=== PATIENT | male | born 1975 | race Hispanic/Latino ===

== ENCOUNTER 2019-01-25 16:16 | Inpatient (IN) | payer BC ==
[~2019-01-25] VITALS: Ht 167.6 cm; Wt 74.4 kg
--- OUTSIDE RECORDS SUMMARY | 2019-01-25 18:33 | XMS REPORT | Continuity of Care Document ---
Author Author [employer] Address Unknown Phone Unavailable Care Team Providers Care Vascular Ultrasound Technologist Name Role Phone [employer] Unavailable Unavailable Problems Problem Status Onset Date Classification Date Reported Comments Source Psoriasis arthropathica Active Problem 12/21/2018 Sarath Quevedo Psoriasis Active Problem 12/21/2018 Sarath Quevedo Medications Medication Details Route Status Patient Instructions Ordering Provider Order Date Source Folic Acid 1 tablet Orally Active 1 MG Orally Once a day Abdifatah 12/15/2018 Sarath Quevedo Indomethacin 1 capsule with food or milk Orally Active 50 MG Orally Twice a day Abdifatah 12/15/2018 Sarath Quevedo Methotrexate 8 tabs Orally Active 2.5mg Orally Once a week Abdifatah 12/15/2018 Sarath Quevedo Misc Medication 400 mL, Soln-IV, IV, Once, first dose 05/20/15 16:36:00 PRODUCTION PLANNING MANAGER, stop date 05/20/15 16:36:00 PRODUCTION PLANNING MANAGER Inactive [facility] 05/20/2015 [facility] propofol 40 mg=4 mL, Emulsion, IV, Once, first dose 05/20/15 16:33:00 PRODUCTION PLANNING MANAGER, stop date 05/20/15 16:33:00 PRODUCTION PLANNING MANAGER Inactive [facility] 05/20/2015 [facility] propofol 50 mg=5 mL, Emulsion, IV, Once, first dose 05/20/15 16:30:00 PRODUCTION PLANNING MANAGER, stop date 05/20/15 16:30:00 PRODUCTION PLANNING MANAGER Inactive [facility] 05/20/2015 [facility] propofol 40 mg=4 mL, Emulsion, IV, Once, first dose 05/20/15 16:29:00 PRODUCTION PLANNING MANAGER, stop date 05/20/15 16:29:00 PRODUCTION PLANNING MANAGER Inactive [facility] 05/20/2015 [facility] midazolam 2 mg=2 mL, Injection, IV, Once, first dose 05/20/15 16:27:00 PRODUCTION PLANNING MANAGER, stop date 05/20/15 16:27:00 PRODUCTION PLANNING MANAGER Inactive [facility] 05/20/2015 [facility] lidocaine 2 mL, Injection, IV, Once, first dose 05/20/15 16:26:00 PRODUCTION PLANNING MANAGER, stop date 05/20/15 16:26:00 PRODUCTION PLANNING MANAGER Inactive Rodriguez 05/20/2015 [facility] midazolam 2 mg=2 mL, Injection, IV, Once, first dose 05/20/15 16:26:00 PRODUCTION PLANNING MANAGER, stop date 05/20/15 16:26:00 PRODUCTION PLANNING MANAGER Inactive Rodriguez 05/20/2015 [facility] LR 500 mL 500 mL, IV, 75 mL/hr, start date 05/20/15 15:45:00 PRODUCTION PLANNING MANAGER Inactive Brynn 05/20/2015 [facility] Humira Pen inject 0.4ml Subcutaneous Active 40 MG/0.4ML Subcutaneous every 2 weeks Abdifatah Sarath Quevedo Tramadol HCl 1 tablet as needed Orally Active 50 MG Orally every 6 hrs Abdifatah Sarath Quevedo CoQ-10 1 capsule with a meal Orally Active 100 MG Orally Once a day Abdifatah Sarath Quevedo Allergies, Adverse Reactions, Alerts Substance Category Reaction Severity Reaction type Status Date Reported Comments Source otezla Adverse Reaction stopped due to insurance Adverse Reaction Active 12/15/2018 Sarath Quevedo methotrexate Adverse Reaction Info Not Available Adverse Reaction Active 12/15/2018 Sarath Quevedo No Known Medication Allergies drug allergy Allergy [facility] Immunizations No Data Provided for This Section Results No Data Provided for This Section Pathology Reports No Data Provided for This Section Diagnostic Reports No Data Provided for This Section Consultation Notes No Data Provided for This Section Discharge Summaries No Data Provided for This Section History and Physicals No Data Provided for This Section Vital Signs Vital Sign Value Date Comments Source Weight 160 12/15/2018 Sarath Quevedo Height 67 12/15/2018 Sarath Quevedo Temperature Oral (F) 97.7 F 12/15/2018 Sarath Quevedo Heart Rate 76 12/15/2018 Sarath Quevedo Diastolic (mm Hg) 70 12/15/2018 Sarath Quevedo Systolic (mm Hg) 120 12/15/2018 Sarath Quevedo Heart Rate 69 05/20/2015 [facility] Respitory Rate 16 05/20/2015 [facility] Systolic (mm Hg) 120/62 05/20/2015 [facility] Heart Rate 66 05/20/2015 [facility] Respitory Rate 14 05/20/2015 [facility] Systolic (mm Hg) 118/66 [facility] 65 05/20/2015 [facility] Systolic (mm Hg) 114/65 05/20/2015 [facility] Respitory Rate 14 05/20/2015 [facility] Temperature Oral (F) 36.4 Consuelo 05/20/2015 [facility] Weight 74.8 05/20/2015 [facility] Temperature Oral (F) 36.7 Consuelo 05/20/2015 [facility] Peripheral Pulse Rate 68 05/20/2015 [facility] Weight 27.55 05/17/2015 [facility] Encounters Location Location Details Encounter Type Encounter Number Reason For Visit Attending Provider ADM Date DC Date Status Source [facility] Outpatient [id number] Reginald Swain MD 05/20/2015 05/20/2015 Active [facility] Procedures No Data Provided for This Section Assessment and Plan No Data Provided for This Section Plan of Care No Data Provided for This Section Social History No Data Provided for This Section Family History No Data Provided for This Section Advance Directives No Data Provided for This Section Functional Status No Data Provided for This Section
--- OUTSIDE RECORDS SUMMARY | 2019-01-25 18:33 | XMS REPORT | CCD ---
Author Author Auto Generated Organization [facility] Address Unknown Phone Unavailable Care Team Providers Care Professor Of Business Name Role Phone Brynn HELLER, Reginald Velez CP Unavailable Allergies, Adverse Reactions, Alerts Substance Reaction Status No Known Medication Allergies Active Medications Medication Instructions Start Date End Date Status lidocaine 2 mL, Injection, IV, Once, first 05/20/2015 05/20/2015 Completed dose 05/20/15 16:26:00 BIOMEDICAL ENGINEERING PROFESSOR, stop date 05/20/15 16:26:00 BIOMEDICAL ENGINEERING PROFESSOR Misc Medication 400 mL, Soln-IV, IV, Once, first 05/20/2015 05/20/2015 Completed dose 05/20/15 16:36:00 BIOMEDICAL ENGINEERING PROFESSOR, stop date 05/20/15 16:36:00 BIOMEDICAL ENGINEERING PROFESSOR propofol 50 mg=5 mL, Emulsion, IV, Once, 05/20/2015 05/20/2015 Completed first dose 05/20/15 16:30:00 BIOMEDICAL ENGINEERING PROFESSOR, stop date 05/20/15 16:30:00 BIOMEDICAL ENGINEERING PROFESSOR propofol 40 mg=4 mL, Emulsion, IV, Once, 05/20/2015 05/20/2015 Completed first dose 05/20/15 16:33:00 BIOMEDICAL ENGINEERING PROFESSOR, stop date 05/20/15 16:33:00 BIOMEDICAL ENGINEERING PROFESSOR midazolam 2 mg=2 mL, Injection, IV, Once, 05/20/2015 05/20/2015 Completed first dose 05/20/15 16:26:00 BIOMEDICAL ENGINEERING PROFESSOR, stop date 05/20/15 16:26:00 BIOMEDICAL ENGINEERING PROFESSOR midazolam 2 mg=2 mL, Injection, IV, Once, 05/20/2015 05/20/2015 Completed first dose 05/20/15 16:27:00 BIOMEDICAL ENGINEERING PROFESSOR, stop date 05/20/15 16:27:00 BIOMEDICAL ENGINEERING PROFESSOR propofol 40 mg=4 mL, Emulsion, IV, Once, 05/20/2015 05/20/2015 Completed first dose 05/20/15 16:29:00 BIOMEDICAL ENGINEERING PROFESSOR, stop date 05/20/15 16:29:00 BIOMEDICAL ENGINEERING PROFESSOR LR 500 mL 500 mL, IV, 75 mL/hr, start date 05/20/2015 05/20/2015 Discontinued 05/20/15 15:45:00 BIOMEDICAL ENGINEERING PROFESSOR Vital Signs Most recent to oldest [Reference Range]: 1 2 3 Temperature Tympanic [36.6-38.1 DegC] 36.4 DegC *LOW* (05/20/2015 16:35:00) 36.7 DegC (05/20/2015 15:49:00) Temperature Tympanic Fahrenheit 97.52 (05/20/2015 16:35:00) Peripheral Pulse Rate [55-105 bpm] 68 bpm (05/20/2015 15:49:00) Heart Rate Monitored [60-100 bpm] 69 bpm (05/20/2015 16:50:00) 66 bpm (05/20/2015 16:45:00) 65 bpm (05/20/2015 16:40:00) Respiratory Rate [12-20] 16 (05/20/2015 16:50:00) 14 (05/20/2015 16:45:00) 14 (05/20/2015 16:40:00) SpO2 [90-100 %] 98 % (05/20/2015 16:50:00) 98 % (05/20/2015 16:45:00) 97 % (05/20/2015 16:40:00) Blood Pressure [110-120/65-85 mmHg] <content ID='[id number]'>120</content>/<content ID='[id number]'>62</content> mmHg (05/20/2015 16:50:00) <content ID='[id number]'>118</content>/<content ID='[id number]'>66</content> mmHg (05/20/2015 16:45:00) <content ID='[id number]'>114</content>/<content ID='[id number]'>65</content> mmHg (05/20/2015 16:40:00) Mean Arterial Pressure, Cuff 81.3 mmHg (05/20/2015 16:50:00) 83.3 mmHg (05/20/2015 16:45:00) 81.3 mmHg (05/20/2015 16:40:00) Most recent to oldest [Reference Range]: 1 2 3 Height/Length Estimated 165 cm (05/17/2015 15:33:00) Weight 74.8 kg (05/20/2015 15:49:00) Weight Estimated 75 kg (05/17/2015 15:33:00) Weight Dosing 74.8 kg (05/20/2015 15:49:00) Weight Pounds 165 lb (05/20/2015 15:49:00) Body Mass Index Estimated 27.55 kg/m2 (05/17/2015 15:33:00)
--- OUTSIDE RECORDS SUMMARY | 2019-01-25 18:33 | XMS REPORT ---
[facility] Address Unknown Phone Unavailable Care Team Providers Care Asian Art Curator Name Role Phone Unavailable Unavailable Problems This patient has no known problems. Allergies, Adverse Reactions, Alerts This patient has no known allergies or adverse reactions. Medications This patient has no known medications. Results Test Description Test Time Test Comments Text Results Atomic Results Result Comments CT CERVICAL WO CLINICAL INDICATION: M54.2 Cervicalgia MODALITY: SWYF CT (Iterative dose reduction techniques are utilized.)TECHNIQUE: Axial slices obtained through the cervical spine at appropriate intervals without contrast. Multiplanar reformatted images were obtained.Computed Tomography Dose Index: 17.0 mGy.IMPRESSION:1. 2.5 mm broad-based spondylotic posterior protrusion at the C6-C7 level.2. 2 mm broad-based posterior central protrusion at the C3-C4 level.3. 1 mm broad-based posterior protrusion at the C5-C6 level.4. 1 mm spondylotic posterior protrusion at the C4-C5 level, eccentric to the left.5. Multilevel bilateral cervical neural foraminal stenosis and facet arthrosis, detailed at specific levels below.FINDINGS:COMPARISON: NoneCervical spine alignment is normal. No fractures or destructive osseous lesions are detected. Moderate anterior spondylosis is present at the C6-C7 level. Mild anterior spondylosis is evident at remaining cervical levels.Findings at specific levels:C2-C3: Central canal and bilateral neural foramina are patent. Significant posterior intervertebral disc bulge or protrusion is not seen. Facet joints appear unremarkable..C3-C4: 2 mm broad-based posterior central protrusion is evident. Minimal posterior spondylosis is evident. Central canal is patent. The right neural foramen is patent. Mild left neural foraminal stenosis is evident. Moderate left and minimal right facet arthropathy is seen.C4-C5: 1 mm spondylotic posterior protrusion is evident, eccentric to the left, minimally effacing the left anterior aspect of thecal sac. Central canal remains patent. Moderate left neural foraminal stenosis is evident. The right neural foramen is patent. Moderate left facet arthropathy is seen. The right facet joint appears unremarkable.C5-C6: 1 mm broad-based posterior protrusion is evident. Central canal is patent. Bilateral neural foramina are patent. Minimal bilateral facet arthropathy is seen.C6-C7: 2.5 mm broad-based spondylotic posterior protrusion effaces the anterior aspect of thecal sac. Central canal remains patent. The right neural foramen is patent. Mild left neural foraminal stenosis is evident. Minimal bilateral facet arthropathy is see n.C7-T1: Significant disc bulge or protrusion is not seen. Central canal is patent. Bilateral neural foramina are patent. Mild to moderate bilateral facet arthropathy is seen.
--- OUTSIDE RECORDS SUMMARY | 2019-01-25 18:33 | XMS REPORT | Clinical Summary ---
Author Author [employer] [facility] [employer] Address Unknown Phone Unavailable Care Team Providers Care Asbestos Shingle Inspector Name Role Phone Wale Barlow MD PCP Allergies Not on File Medications Not on file Active Problems Not on file Social History Date Tobacco Use Types Packs/Day Years Used Never Assessed Sex Assigned at Date Recorded Not on file Industry Job Start Date Occupation Not on file Not on file Not on file Travel End Travel History Travel Start No recent travel history available. Last Filed Vital Signs Not on file Plan of Treatment Health Maintenance Due Date Last Done Comments INFLUENZA VACCINE 12/28/2018 Results Not on fileafter 01/24/2018 Insurance Type Payer Benefit Subscriber ID Effective Phone Address Plan / Dates Group PPO BCBS BCBS xxxxxxxxxxxx [id number] CHOICE resent PPO/ALIA QURESHI PPO Advance Directives For more information, please contact: [phone] Patient Health Services Coordinator Explanation Type Date Recorded Advance Directives, 09/22/2017 2:36 PM Living Will and Medical Power of Calendering Supervisor
--- OUTSIDE RECORDS SUMMARY | 2019-01-25 18:33 | XMS REPORT ---
Author Author Noé Gardiner Organization [employer] Address Unknown Phone Unavailable Care Team Providers Care Outdoor Landscape Architect Name Role Phone Noé Gardiner CP Unavailable Allergies, Adverse Reactions, Alerts Substance Reaction Event Type otezla stopped due to insurance Non Drug Allergy methotrexate Info Not Available Non Drug Allergy Problems Problem Type Condition Code Onset Dates Condition Status Problem Psoriasis arthropathica L40.50 Active Problem Psoriasis L40.9 Active Assessment Psoriasis arthropathica L40.50 Active Assessment Psoriasis L40.9 Active Medications Medication Code System Code Instructions Start Date End Date Status Dosage Humira Pen [facility] 14982218572 40 MG/0.4ML Subcutaneous every 2 weeks Active inject 0.4ml Tramadol HCl ND 58289312723 50 MG Orally every 6 hrs Inactive 1 tablet as needed CoQ-[address] [facility] 93084127561 100 MG Orally Once a day Active 1 capsule with a meal Folic Acid ND 58485186746 1 MG Orally Once a day December 15, 2018 Apr 14, 2019 Active 1 tablet Indomethacin ND 69588543479 50 MG Orally Twice a day December 15, 2018 Active 1 capsule with food or milk Methotrexate ND 40269547170 2.5mg Orally Once a week December 15, 2018 Apr 14, 2019 Active 8 tabs Vital Signs Date/Time: December 15, 2018 BMI 25.06 Index Weight 160 lbs Height 67 in Temperature 97.7 F Cardiac Monitoring Heart Rate 76 /min Blood Pressure Diastolic 70 mm Hg Blood Pressure Systolic 120 mm Hg Results No Known Results Summary Purpose [employer] Submission
[2019-01-25] MEDS ORDERED: CEFTRIAXONE SOD 1 GM/NS 50 ML 50 ML IV SCH (19:30)
[2019-01-25] MEDS: ACETAMINOPHEN 325 MG TAB PO PRN (19:53)
[2019-01-25 19:54] VITALS: BP 116/80
[2019-01-25 19:55] VITALS: BP 116/80
[2019-01-25] MEDS: SODIUM CHLORIDE 0.9% 1000ML 1,000 ML IV SCH (20:51)
[2019-01-25] MEDS: HEPARIN SOD (PORCINE) 5,000 UNIT/ML VIAL SC SCH (20:52)
[2019-01-25] MEDS: AZITHROMYCIN 500MG/NS 250 ML 250 ML IV SCH (20:52)
[2019-01-25 21:30] VITALS: BP 116/80
[2019-01-25] MEDS: BENZONATATE 100 MG CAP PO PRN (21:35)
[2019-01-25 21:49] LABS: BASOPHILS # (AUTO) 0.1 (0.0-0.1); BASOPHILS % 0.7 % (0.0-1.0); EOSINOPHILS # (AUTO) 0.2 (0.0-0.4); EOSINOPHILS % 2.5 % (0.0-6.0); LYMPHOCYTES # (AUTO) 1.3 (1.0-3.2); LYMPHOCYTES % 15.5 % (18.0-39.1); MEAN CORPUSCULAR HEMOGLOBIN 31.6 pg (28-32); MEAN CORPUSCULAR HGB CONC 34.1 g/dL (31-35); MEAN CORPUSCULAR VOLUME 92.6 fL (81-99); MONOCYTES # (AUTO) 0.9 (0.2-0.8); MONOCYTES % 10.5 % (4.4-11.3); NEUTROPHILS % 70.1 % (38.7-80.0); PLATELET COUNT 382 x10e3/uL (140-360); RED BLOOD COUNT 4.75 x10e6/uL (4.3-5.7); RED CELL DISTRIBUTION WIDTH 12.9 % (11.7-14.4)
[2019-01-25 22:08] LABS: ALANINE AMINOTRANSFERASE 15 IU/L (0-55); ALBUMIN 2.9 g/dL (3.5-5.0); ALBUMIN/GLOBULIN RATIO 0.7 (0.8-2.0); ALKALINE PHOSPHATASE 57 IU/L (40-150); ANION GAP 14.3 mmol/L (8-16); BLOOD UREA NITROGEN 12 mg/dL (7-26); BUN/CREATININE RATIO 15 (6-25); CALCIUM 9.2 mg/dL (8.4-10.2); CARBON DIOXIDE 24 mmol/L (22-29); CHLORIDE 102 mmol/L (98-107); CREATININE, SERUM 0.82 mg/dL (0.72-1.25); EST GLOMERULAR FILTRATION RATE > 60 ML/MIN (60-); GLUCOSE 103 mg/dL (74-118); POTASSIUM 3.3 mmol/L (3.5-5.1); SODIUM 137 mmol/L (136-145)
[2019-01-25] MEDS: MORPHINE SULFATE 2 MG/ML SYR 1ML IV PRN (22:25)
[2019-01-25] MEDS ORDERED: SODIUM CHLORIDE 0.9% 50ML 50 ML ONE (22:26)
[2019-01-25] MEDS ORDERED: IOPAMIDOL 370 MG/ML 200 ML INFUS..BTL INJ ONE (22:26)
[2019-01-25 22:43] LABS: BILIRUBIN,URINE NEGATIVE (NEGATIVE); CLARITY,URINE CLEAR (CLEAR); COLOR,URINE YELLOW (YELLOW); KETONES,URINE NEGATIVE (NEGATIVE); LEUKOCYTE ESTERASE ,URINE NEGATIVE (NEGATIVE); NITRITE,URINE NEGATIVE (NEGATIVE); PROTEIN,URINE DIPSTICK NEGATIVE (NEGATIVE); URINE UROBILINOGEN 0.2 mg/dL (0.2 - 1)
--- NOTE | 2019-01-25 23:00 | Diagnostic Imaging Report ---
EXAMINATION: CT scan of the chest with contrast. TECHNIQUE: Spiral CT images of the chest were performed from the lung apices to the level of the adrenal glands after the intravenous administration of 100 cc Isovue-370 Coronal and sagittal reformatted images were obtained. COMPARISON: None. CLINICAL HISTORY:Pneumonia, chest pain DISCUSSION: LINES/TUBES: None. LUNGS AND AIRWAYS: Dense consolidations with multiple air bronchograms and adjacent groundglass opacities involving the posterior, superior and inferior lingular segments of the left upper lobe and predominantly the superior segment of the left lower lobe. 4-5 mm nodule with adjacent ground glass opacity anteriorly within the left upper lobe (series 3 image 29). The right lung is clear. The trachea, mainstem bronchi, and central lobar and segmental bronchi are patent. PLEURA: No pneumothorax or pleural effusions. HEART AND MEDIASTINUM: Visualized portions of the thyroid gland appear normal. No ectasia or aneurysmal dilatation of the thoracic aorta. Pulmonary outflow tract is of normal caliber. No central pulmonary arterial filling defect. No pericardial effusion. LYMPH NODES: Multiple mildly enlarged left hilar and mediastinal lymph nodes, for example a subcarinal node measures 1 cm short axis. No axillary lymphadenopathy. ABDOMEN: Visualized portions of the liver, spleen, pancreas, adrenals, and upper poles of the kidneys are unremarkable. BONES AND SOFT TISSUES: No osseous destructive lesions. No focal soft tissue abnormalities. IMPRESSION: Multifocal pneumonia involving the left upper and lower lobes, with mild reactive left hilar and mediastinal lymphadenopathy.. Follow-up chest radiograph is suggested in 8 weeks to document resolution after appropriate treatment. 4 mm left upper lobe nodule likely represents an additional focus of infection. If the patient is at high risk of malignancy, a follow-up CT scan of the chest may be obtained in one year to assess for stability or resolution. Signed by: Dr. Papo Stahl M.D. on 01/25/2019 10:56 PM
[2019-01-25 23:01] LABS: BACTERIA,URINE FEW /HPF; EPITHELIAL CELLS,URINE FEW /LPF; RBC,URINE 0-5 /HPF (0-5); WBC,URINE (MAN) 0-5 /HPF (0-5)
[2019-01-25 23:59] VITALS: BP 103/67
[2019-01-26] VITALS (7 sets, daily range): BP systolic 102–120; BP diastolic 70–86
[2019-01-26] MEDS ORDERED: ALBUTEROL/IPRATROPIUM 3 ML NEB NEB SCH (01:00)
[2019-01-26] MEDS: SODIUM CHLORIDE 0.9% 1000ML 1,000 ML IV SCH ×3 (02:06→23:36)
[2019-01-26] MEDS: ACETAMINOPHEN 325 MG TAB PO PRN (02:06)
[2019-01-26] MEDS: BENZONATATE 100 MG CAP PO PRN ×2 (02:31→15:07)
[2019-01-26] MEDS: GUAIFENESIN/CODEINE 10 ML CUP PO PRN ×4 (03:39→20:00)
--- NOTE | 2019-01-26 03:45 | Diagnostic Imaging Report ---
EXAMINATION: PA and lateral views of the chest. COMPARISON: CT chest 01/25/2019 CLINICAL HISTORY: Shortness of breath, fever DISCUSSION: The lungs are well-inflated. Consolidations in the left upper and left lower lobes are similar to that seen on the director of scout work tomogram from CT performed 01/25/2019. The right lung remains clear. Heart size is normal. No overt pulmonary edema. No acute osseous abnormality. IMPRESSION: Multifocal pneumonia involving the left upper and lower lobes, seen to better advantage on comparison CT. No new consolidations. Signed by: Dr. Papo Stahl M.D. on 01/26/2019 3:41 AM
[2019-01-26 04:07] LABS: ABG HCO3 23 mmol/L (23-28); ABG PCO2 28 mmHg (41-51); ABG PH 7.52 (7.31-7.41); ABG PO2 120 mmHg (80-105)
[2019-01-26] MEDS: MORPHINE SULFATE 2 MG/ML SYR 1ML IV PRN ×2 (04:37→20:00)
--- NOTE | 2019-01-26 05:40 | History and Physical ---
HISTORY OF PRESENT ILLNESS: The patient is a 43-year-old gentleman with a history of chronic cough, chronic congestion, was seen in the clinic on the . The patient was diagnosed with acute bronchospasms and also with allergic rhinitis and also bronchitis. The patient was started on ciprofloxacin 500 mg for 10 days, prednisone 20 mg for 5 days and also some benzonatate Perles. The patient went pen[facility] through the medication and felt a little better and stop the medicine and then yesterday, the patient called was having symptoms of fever and congestion with a feeling of weakness. Chest x-ray was ordered in the office and showed right lobar pneumonia, upper and lower lobe, admitted to the hospital for failed outpatient treatment and also for possible sepsis. PAST MEDICAL HISTORY: History of cirrhotic arthritis, history of hyperlipidemia. FAMILY HISTORY: Positive for diabetes and also mother is alive without any problems. He has 2 brothers, 2 sisters, 1 healthy son, 1 daughter with Down syndrome. SOCIAL HISTORY: Nonsmoker. No EtOH. No IV drug abuse. ALLERGIES: NKDA. No recent hospitalization. MEDICATIONS: Methotrexate 2.5 mg 3 tablets weekly, indomethacin ER 75 mg, Atorvastatin 10 mg, tramadol 50 mg and also recent administration of Cipro and prednisone. REVIEW OF SYSTEMS: Negative for chest pain. No shortness of breath. Positive for some nausea. No vomiting. No diarrhea. No constipation. No rectal bleeding. Positive for fever. Positive for chills. Positive for weakness and fatigue. The patient also has yellow phlegm coming. Currently, the patient is also on Humira. PHYSICAL EXAMINATION: GENERAL: The patient is alert and oriented x3. HEENT: Normocephalic, atraumatic. Pupils are reactive to light and accommodation. CVS: S1 and S2 normal. Regular rate and rhythm. Right-sided rhonchi present throughout the lung. ABDOMEN: Nontender and nondistended. EXTREMITIES: No clubbing. No cyanosis and/or no edema. Positive for cirrhotic arthritis. Arthritic changes present. ASSESSMENT: 1. Chest x-ray shows failed outpatient treatment of lobar pneumonia. 2. History of psoriatic arthritis. 3. History of pain. 4. Immunocompromised status. PLAN: Plan would be to start the patient on Rocephin and Zithromax. Start him on IV fluids at 70 mL/hour. The patient will be given DVT prophylaxis with heparin 5000 units twice a day. GI prophylaxis with Pepcid will be started. CT of the chest has been ordered to rule out other etiologies, especially with being immunocompromised. His home medicines will be restarted except for methotrexate and Humira. The patient is on observation status. We will determine whether the patient will be inpatient depending on the CT and progression of the disease process. Further recommendation per clinical course. We will continue to monitor the patient. MD PATRICK Ash/MODL /[id number]
[2019-01-26 05:45] LABS: BASOPHILS # (AUTO) 0.1 (0.0-0.1); BASOPHILS % 0.7 % (0.0-1.0); EOSINOPHILS # (AUTO) 0.2 (0.0-0.4); HEMATOCRIT 38.4 % (38.2-49.6); LYMPHOCYTES # (AUTO) 1.3 (1.0-3.2); LYMPHOCYTES % 15.6 % (18.0-39.1); MEAN CORPUSCULAR HEMOGLOBIN 31.7 pg (28-32); MEAN CORPUSCULAR HGB CONC 33.9 g/dL (31-35); MEAN CORPUSCULAR VOLUME 93.7 fL (81-99); MONOCYTES # (AUTO) 0.9 (0.2-0.8); MONOCYTES % 10.5 % (4.4-11.3); NEUTROPHILS # (AUTO) 5.9 (2.1-6.9); NEUTROPHILS % 70.5 % (38.7-80.0); PLATELET COUNT 368 x10e3/uL (140-360)
[2019-01-26 06:06] LABS: ALANINE AMINOTRANSFERASE 13 IU/L (0-55); ALBUMIN 2.2 g/dL (3.5-5.0); ALBUMIN/GLOBULIN RATIO 0.6 (0.8-2.0); ALKALINE PHOSPHATASE 47 IU/L (40-150); ANION GAP 11.7 mmol/L (8-16); BLOOD UREA NITROGEN 10 mg/dL (7-26); BUN/CREATININE RATIO 13 (6-25); CALCIUM 8.3 mg/dL (8.4-10.2); CARBON DIOXIDE 26 mmol/L (22-29); CHLORIDE 103 mmol/L (98-107); CREATININE, SERUM 0.75 mg/dL (0.72-1.25); EST GLOMERULAR FILTRATION RATE > 60 ML/MIN (60-); GLUCOSE 107 mg/dL (74-118); POTASSIUM 3.7 mmol/L (3.5-5.1); SODIUM 137 mmol/L (136-145)
[2019-01-26] MEDS ORDERED: VANCOMYCIN 1GM/NS 250 ML 250 ML IV ONE (06:45)
[2019-01-26] MEDS: LEVALBUTEROL HCL SOLN NEBU 0.63 MG/3 ML NEB INH SCH ×3 (07:30→20:01)
[2019-01-26] MEDS: FAMOTIDINE 20 MG TAB PO SCH ×2 (08:36→15:57)
[2019-01-26] MEDS: PIPER-TAZ 3.375 GM 50 ML IV SCH ×3 (08:36→21:00)
[2019-01-26] MEDS: HEPARIN SOD (PORCINE) 5,000 UNIT/ML VIAL SC SCH ×2 (09:00→20:00)
--- NOTE | 2019-01-26 10:06 | Progress Note ---
DATE: SUBJECTIVE: The patient was admitted for multifocal pneumonia, right-sided. Last night, the patient spiked temperature up to 104, was tachypneic, O2 at [address] scan was done. Chest x-ray was done and the patient is still in IMCU. Currently, has temperature of 99. No chest pain. Positive for shortness of breath. No nausea, vomiting, diarrhea plus diaphoresis at times. OBJECTIVE: VITAL SIGNS: Temperature is 99.1, T-max is 104, pulse of 91, respirations of 20, blood pressure is 102/97, and pulse oximetry of 94% on 6 liters of oxygen. HEENT: Normocephalic, atraumatic. Pupils are reactive to light and accommodation. CVS: S1 and S2 normal. Regular rate and rhythm. ABDOMEN: Nontender, nondistended. LUNGS: Left lung with rhonchi and left lung with wheezing, inspiratory. Right lung clear. ABDOMEN: Nontender and nondistended. EXTREMITIES: No clubbing, no cyanosis, no edema. LABORATORY VALUES: White count is 8.40, hemoglobin 13.0, hematocrit of 38.5, platelet count is 368. Chemistry; sodium 137, potassium 3.7, BUN of 10, creatinine 0.75. Urine negative. Microbiology pending. Blood cultures, urine, and sputum is pending. IMAGING STUDIES: Chest x-ray shows no new consolidation, multifocal pneumonia involving left upper lobes and lower lobes seen together on comparison of CT. CT scan shows multifocal pneumonia and left upper lobe and lower lobes with mild reactive left hilar and mediastinal lymphadenopathy and 4 mm left upper lobe nodule likely representing an additional focus of infection. A followup CT scan is recommended. ASSESSMENT: Multifocal pneumonia, left-sided. PLAN: The patient has been changed to Zosyn 3.75 mg IV q.6 and also on Zithromax, a gram of vancomycin will be given. Sputum cultures have been awaiting. Blood cultures are awaiting. We will continue to monitor the patient. Further recommendation per clinical course. Consult with Dr. Sanchez has been done. MD PATRICK Ash/MODL /[id number]
[2019-01-26] MEDS: ACETAMINOPHEN 1000 MG/100 ML IV PRN ×3 (10:28→22:00)
--- NOTE | 2019-01-26 12:45 | NUR ---
Received patient from observation nurse, patient transferred in bed able to ambulate independently, denies pain, rating 0/10 scale. IVF infusing NS@120mls/hr. Patient on 4L High flow no s/s of distress. Oriented to room and use of call light instructed to use call light when needing assistance.
--- NOTE | 2019-01-26 16:24 | Consultation ---
DATE OF CONSULTATION: Pulmonary Consultation REASON FOR CONSULT: Pneumonia. HISTORY OF PRESENT ILLNESS: Mr. 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 He failed outpatient treatment. He was given p.o. antibiotics. His chest x-ray showing dense left-sided infiltrates. CT chest was done, which is showing evidence of left upper and lower lobe pneumonia. He is on Humira, methotrexate for psoriatic arthritis. He denies any travel outside the country. REVIEW OF SYSTEMS: GENERAL: Fever and chills. HEAD: Denies any head trauma. ENT: Denies any earache. CVS: Denies any chest pain. RESPIRATORY: Shortness of breath. GI: Denies any nausea or vomiting. The rest of the review of systems are negative except as in HPI. PAST MEDICAL HISTORY: Psoriatic arthritis. FAMILY AND SOCIAL HISTORY: He does not smoke. Does not drink. PHYSICAL EXAMINATION: VITAL SIGNS: Temperature 97.4, pulse of 83, blood pressure 120/82, respiratory rate of 18, O2 saturation 97%, and T-max of 101.1. HEENT: Head is atraumatic and normocephalic. NECK: Supple. CHEST: Bronchial breath sounds in the left upper lobe. Crackles on the left side. HEART: S1 and S2 audible. ABDOMEN: Soft and nontender. EXTREMITIES: No clubbing, cyanosis, or edema. NEUROLOGIC: He is awake and alert. LABORATORY DATA: White count of 8,000, hemoglobin 13.0, and platelets 368. Chemistries within normal limits. Chest CT films reviewed. ASSESSMENT/PLAN: A 43-year-old male with multifocal left-sided pneumonia, currently hemodynamically stable except fever. Continue the patient on IV hydration. Agree with IV Zosyn and azithromycin. I will add vancomycin scheduled as well. Move the patient to IMCU. Next 24 to 48 hours if the patient improves, I will continue the current treatment. If not, then may need bronchoscopy. I will also send sputum culture. MD DES Maya/ILNDSAY /[id number]
--- NOTE | 2019-01-26 19:30 | NUR ---
patient recieved awake, alert, lying quietly in bed. vss. no c/o pain noted. ivf continue to infuse without difficulty. pm assessment complete. patient instructed to call for assistance when needed.
[2019-01-26] MEDS: AZITHROMYCIN 500MG/NS 250 ML 250 ML IV SCH (19:44)
--- NOTE | 2019-01-26 20:00 | NUR ---
patient medicated with morphine 2mg ivp for c/o pain to chest with cough. robitussin with codeine 10cc po given for cough.
[2019-01-27] VITALS: BP 107/61
--- NOTE | 2019-01-27 | NUR ---
patient appears to be resting quietly. no c/o pain noted. oral temp 99.9 at this time. will continue to monitor.
[2019-01-27] MEDS: LEVALBUTEROL HCL SOLN NEBU 0.63 MG/3 ML NEB INH SCH ×4 (00:03→19:37)
[2019-01-27] MEDS: PIPER-TAZ 3.375 GM 50 ML IV SCH ×4 (02:08→21:49)
[2019-01-27 04:00] VITALS: BP 123/77
[2019-01-27] MEDS: GUAIFENESIN/CODEINE 10 ML CUP PO PRN ×4 (04:15→23:24)
[2019-01-27] MEDS: MORPHINE SULFATE 2 MG/ML SYR 1ML IV PRN ×2 (04:15→16:58)
--- NOTE | 2019-01-27 04:15 | NUR ---
patient medicated with morphine 2mg ivp for c/o head and chest pain due to coughing. robittusin with codeine 10cc po given for c/o cough at this time.
[2019-01-27] MEDS: ACETAMINOPHEN 1000 MG/100 ML IV PRN ×4 (04:38→17:40)
--- NOTE | 2019-01-27 04:38 | NUR ---
patient medicated with tylenol 1gm iv for temp 101.0 orally at this time.
--- NOTE | 2019-01-27 05:00 | NUR ---
patient refusing am labs this am. patient requesting a picc line so he doesn't have to be stuck. to be notified of this this am.
--- NOTE | 2019-01-27 06:25 | NUR ---
here to see patient. He spoke to patient re: picc line for lab draws per patients request. refused to order picc. patient ok with this decision and is ok with having lab stick him for am labs. lab notified of this at this time.
[2019-01-27 06:43] LABS: BASOPHILS # (AUTO) 0.1 (0.0-0.1); BASOPHILS % 0.6 % (0.0-1.0); EOSINOPHILS # (AUTO) 0.2 (0.0-0.4); EOSINOPHILS % 2.2 % (0.0-6.0); HEMATOCRIT 37.8 % (38.2-49.6); HEMOGLOBIN 12.5 g/dL (14.0-18.0); LYMPHOCYTES # (AUTO) 1.2 (1.0-3.2); LYMPHOCYTES % 14.6 % (18.0-39.1); MEAN CORPUSCULAR HEMOGLOBIN 31.4 pg (28-32); MEAN CORPUSCULAR HGB CONC 33.1 g/dL (31-35); MONOCYTES # (AUTO) 0.8 (0.2-0.8); MONOCYTES % 9.3 % (4.4-11.3); NEUTROPHILS # (AUTO) 6.1 (2.1-6.9); NEUTROPHILS % 72.9 % (38.7-80.0); PLATELET COUNT 352 x10e3/uL (140-360); RED BLOOD COUNT 3.98 x10e6/uL (4.3-5.7); RED CELL DISTRIBUTION WIDTH 13.1 % (11.7-14.4)
[2019-01-27 06:59] LABS: ANION GAP 12.6 mmol/L (8-16); BLOOD UREA NITROGEN 6 mg/dL (7-26); BUN/CREATININE RATIO 8 (6-25); CALCIUM 8.3 mg/dL (8.4-10.2); CARBON DIOXIDE 26 mmol/L (22-29); CHLORIDE 104 mmol/L (98-107); CREATININE, SERUM 0.73 mg/dL (0.72-1.25); EST GLOMERULAR FILTRATION RATE > 60 ML/MIN (60-); GLUCOSE 102 mg/dL (74-118); POTASSIUM 3.6 mmol/L (3.5-5.1); SODIUM 139 mmol/L (136-145)
[2019-01-27 07:26] VITALS: BP 115/76
[2019-01-27] MEDS: SODIUM CHLORIDE 0.9% 1000ML 1,000 ML IV SCH ×3 (08:53→21:49)
[2019-01-27] MEDS: FAMOTIDINE 20 MG TAB PO SCH ×2 (08:53→17:00)
[2019-01-27] MEDS: HEPARIN SOD (PORCINE) 5,000 UNIT/ML VIAL SC SCH ×2 (09:26→21:53)
[2019-01-27 11:32] VITALS: BP 134/71
--- NOTE | 2019-01-27 12:30 | NUR ---
called Dr. Travis for consult, spoke with Dr. Travis made aware of consult.
[2019-01-27] MEDS: VANCOMYCIN 1GM/NS 250 ML 250 ML IV SCH (12:59)
[2019-01-27 17:00] VITALS: BP 156/81
[2019-01-27] MEDS ORDERED: KETOROLAC TROMETHAMINE 30 MG/ML VIAL IM PRN (18:30)
[2019-01-27] MEDS: AZITHROMYCIN 500MG/NS 250 ML 250 ML IV SCH (19:46)
[2019-01-27] MEDS: KETOROLAC TROMETHAMINE 30 MG/ML VIAL IV PRN (19:46)
[2019-01-27 20:00] VITALS: BP 151/81
[2019-01-28] VITALS (8 sets, daily range): BP systolic 109–150; BP diastolic 56–82
[2019-01-28] MEDS: LEVALBUTEROL HCL SOLN NEBU 0.63 MG/3 ML NEB INH SCH ×4 (00:12→19:15)
[2019-01-28] MEDS: ACETAMINOPHEN 325 MG TAB PO PRN ×4 (00:22→17:44)
[2019-01-28] MEDS: VANCOMYCIN 1GM/NS 250 ML 250 ML IV SCH ×2 (00:23→12:45)
[2019-01-28] MEDS: PIPER-TAZ 3.375 GM 50 ML IV SCH ×4 (03:53→21:35)
[2019-01-28] MEDS: MORPHINE SULFATE 2 MG/ML SYR 1ML IV PRN (04:36)
[2019-01-28] MEDS: FAMOTIDINE 20 MG TAB PO SCH ×2 (08:49→16:30)
[2019-01-28] MEDS: SODIUM CHLORIDE 0.9% 1000ML 1,000 ML IV SCH ×3 (08:57→19:45)
[2019-01-28] MEDS: KETOROLAC TROMETHAMINE 30 MG/ML VIAL IV PRN (09:15)
[2019-01-28] MEDS: HEPARIN SOD (PORCINE) 5,000 UNIT/ML VIAL SC SCH ×2 (09:16→21:35)
[2019-01-28] MEDS: GUAIFENESIN/CODEINE 10 ML CUP PO PRN ×2 (13:16→17:44)
--- NOTE | 2019-01-28 17:25 | NUR ---
Paged Dr. Travis made aware AFB culture (BLD) Blood to taken on Tuesday is a sent out and it is required to done during weekday. Tuesday is Labor day. Received orders to do it Tuesday, and to do HIV 1 Western Blot
--- NOTE | 2019-01-28 18:09 | Consultation ---
DATE OF CONSULTATION: REASON FOR CONSULTATION: Fever, chills, pneumonia. HISTORY OF PRESENT ILLNESS: This patient is a very pleasant 43-year-old male, who has been sick for a couple of months or so. He was diagnosed with psoriasis. The patient also had psoriasis arthritis. He has been seen by Dr. Quevedo. He was started on Humira. He was getting these shots every two weeks. He has been on fever for about a month now and he was diagnosed with pneumonia. He was given ciprofloxacin 5 mg for 10 days, prednisone 20 mg for 5 days without any improvement. The fever persist. He got sicker. He said he has been coughing up some greenish sputum through the whole time. Finally, he came to the hospital where he was admitted. The patient is currently alert, oriented, comfortable. He is telling me he has history of psoriasis. He also has history of hyperlipidemia. He does have cats and dogs in the house. 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 PAST MEDICAL HISTORY: Psoriasis, arthritis, hyperlipidemia. PAST SURGICAL HISTORY: Denies. ALLERGIES: NKDA. SOCIAL HISTORY: He denies smoking, drug abuse, or alcohol abuse. He is . He has two cats, two new kittens and a dog. Does not live in a farm. MEDICATIONS: Methotrexate 7.5 weekly, indomethacin 75 daily, atorvastatin, tramadol, and then Humira injection every two weeks for the last couple of months. REVIEW OF SYSTEMS: GENERAL: He is just not feeling well, having fever as mentioned above, and cough. Mainly the fever is a problem. Other than that his review of systems is. HEENT: Negative. PULMONARY: As above. : Negative. GI: Negative. SKIN: There is no rash. The patient was in the emergency room and chest x-ray showed multilobar pneumonia. He was on Rocephin, azithromycin, however, his fever continue. The patient has been seen by Pulmonary. Infectious Disease did not see the patient. LABORATORY DATA: Reviewed. His white count 8.56, hemoglobin 15, hematocrit 44. His sodium 137, potassium 3.7, creatinine 0.75, albumin 2.9. Blood cultures, sputum cultures are -[address], which was done showed multifocal pneumonia involving left upper lobe and lower lobes with mild reactive left hilar mediastinal lymphadenopathy. PHYSICAL EXAMINATION: GENERAL: He is currently alert, oriented, does not seem to be in acute distress. VITALS SIGNS: Stable with febrile, low temperature 103. HEENT: Not icteric. NECK: Supple. CHEST: Few crackles bilateral. COR: S1, S2. No murmurs. ABDOMEN: Soft. Bowel sounds present. EXTREMITIES: No edema. IMPRESSION AND PLAN: Pneumonia for 4 weeks, immunocompromised patient, history of kitten exposure. Differential diagnosis is wide because he is immunocompromised patient. I think we need to rule out acute fever with this exposure to the kitten, rule out histoplasmosis, rule out atypical infection, mycoplasma, Legionella, chlamydia. I would also obtain HIV. May need bronchoscopy to check for AFB and fungal. Further recommendations to follow. We will discuss with Pulmonary. MD RAPHAEL Ambriz/LINDSAY /[id number]
--- NOTE | 2019-01-28 19:00 | NUR ---
Patient visited in room during nursing rounds. Patient alert and oriented x4. No distress or discomfort noted. On 3L Humidified O2. Ambulatory in room prn. at bedside. Pt educated and aware of plan of care. Pt on scheduled IV antibiotics. V/S stable at this time. Call portillo within reach. Will monitor closely.
[2019-01-28] MEDS: AZITHROMYCIN 500MG/NS 250 ML 250 ML IV SCH (19:45)
[2019-01-28 21:06] LABS: HIV 1&2 AB SCREEN NON-REACTIVE (NONREACTIVE)
[2019-01-29] VITALS (8 sets, daily range): BP systolic 116–143; BP diastolic 63–83
[2019-01-29] MEDS: ACETAMINOPHEN 325 MG TAB PO PRN ×4 (00:13→22:59)
[2019-01-29] MEDS: GUAIFENESIN/CODEINE 10 ML CUP PO PRN ×4 (00:15→21:19)
[2019-01-29] MEDS: VANCOMYCIN 1GM/NS 250 ML 250 ML IV SCH (00:18)
[2019-01-29] MEDS: LEVALBUTEROL HCL SOLN NEBU 0.63 MG/3 ML NEB INH SCH ×4 (00:20→19:00)
[2019-01-29] MEDS: MORPHINE SULFATE 2 MG/ML SYR 1ML IV PRN (01:44)
[2019-01-29] MEDS: PIPER-TAZ 3.375 GM 50 ML IV SCH ×4 (03:00→21:21)
[2019-01-29] MEDS: FAMOTIDINE 20 MG TAB PO SCH ×2 (06:28→16:09)
[2019-01-29 06:29] LABS: BASOPHILS % 0.6 % (0.0-1.0); EOSINOPHILS # (AUTO) 0.2 (0.0-0.4); EOSINOPHILS % 3.5 % (0.0-6.0); HEMOGLOBIN 12.6 g/dL (14.0-18.0); LYMPHOCYTES # (AUTO) 1.6 (1.0-3.2); LYMPHOCYTES % 23.1 % (18.0-39.1); MEAN CORPUSCULAR HEMOGLOBIN 31.4 pg (28-32); MEAN CORPUSCULAR HGB CONC 33.2 g/dL (31-35); MEAN CORPUSCULAR VOLUME 94.8 fL (81-99); MONOCYTES # (AUTO) 0.7 (0.2-0.8); MONOCYTES % 10.2 % (4.4-11.3); NEUTROPHILS # (AUTO) 4.3 (2.1-6.9); NEUTROPHILS % 62.2 % (38.7-80.0); PLATELET COUNT 402 x10e3/uL (140-360); RED BLOOD COUNT 4.01 x10e6/uL (4.3-5.7); RED CELL DISTRIBUTION WIDTH 13.2 % (11.7-14.4)
[2019-01-29 06:52] LABS: ALANINE AMINOTRANSFERASE 49 IU/L (0-55); ALBUMIN 2.2 g/dL (3.5-5.0); ALBUMIN/GLOBULIN RATIO 0.6 (0.8-2.0); ALKALINE PHOSPHATASE 52 IU/L (40-150); BLOOD UREA NITROGEN 5 mg/dL (7-26); BUN/CREATININE RATIO 7 (6-25); CALCIUM 8.9 mg/dL (8.4-10.2); CARBON DIOXIDE 27 mmol/L (22-29); CHLORIDE 105 mmol/L (98-107); CREATININE, SERUM 0.71 mg/dL (0.72-1.25); EST GLOMERULAR FILTRATION RATE > 60 ML/MIN (60-); GLUCOSE 98 mg/dL (74-118); SODIUM 139 mmol/L (136-145)
[2019-01-29] MEDS: HEPARIN SOD (PORCINE) 5,000 UNIT/ML VIAL SC SCH ×2 (08:31→21:21)
[2019-01-29] MEDS: SODIUM CHLORIDE 0.9% 1000ML 1,000 ML IV SCH ×2 (08:33→16:09)
[2019-01-29] MEDS: VANCOMYCIN HCL 2 GM in SODIUM CHLORIDE 0.9% 500ML 500 ML IV SCH ×2 (09:07→21:21)
--- NOTE | 2019-01-29 13:06 | Diagnostic Imaging Report ---
2 frontal views of the chest. HISTORY: Pneumonia, cough COMPARISON: Chest radiograph January 26, 2019. CT of the chest January 25, 2019. DISCUSSION: Portable technique, limits sensitivity of the exam. Overlying artifacts. Tubes/Lines: None Lungs and pleura: Slightly more confluent patchy interstitial and airspace opacities involving the left upper and lower lobes. Heart and mediastinum: The cardiomediastinal silhouette appear(s) unchanged. Bones and soft tissues: Appear unchanged. IMPRESSION: Findings compatible with evolving multifocal pneumonia. Recommend short term follow up routine PA and lateral chest radiographs, in 6 to 8 weeks, to evaluate for resolution. Signed by: Dr. Mick Hansen D.O., M.M.M. on 01/29/2019 1:03 PM
[2019-01-29] MEDS: KETOROLAC TROMETHAMINE 30 MG/ML VIAL IV PRN (16:54)
[2019-01-29] MEDS: AZITHROMYCIN 500MG/NS 250 ML 250 ML IV SCH (20:31)
[2019-01-30] VITALS (7 sets, daily range): BP systolic 108–145; BP diastolic 65–74
[2019-01-30] MEDS: KETOROLAC TROMETHAMINE 30 MG/ML VIAL IV PRN (00:02)
[2019-01-30] MEDS: SODIUM CHLORIDE 0.9% 1000ML 1,000 ML IV SCH ×3 (01:00→17:04)
[2019-01-30] MEDS: LEVALBUTEROL HCL SOLN NEBU 0.63 MG/3 ML NEB INH SCH ×4 (01:00→19:00)
[2019-01-30] MEDS: PIPER-TAZ 3.375 GM 50 ML IV SCH ×4 (04:00→21:33)
[2019-01-30 05:02] LABS: BASOPHILS # (AUTO) 0.1 (0.0-0.1); BASOPHILS % 0.7 % (0.0-1.0); EOSINOPHILS # (AUTO) 0.3 (0.0-0.4); EOSINOPHILS % 4.6 % (0.0-6.0); HEMATOCRIT 38.3 % (38.2-49.6); HEMOGLOBIN 12.4 g/dL (14.0-18.0); LYMPHOCYTES # (AUTO) 1.5 (1.0-3.2); LYMPHOCYTES % 20.4 % (18.0-39.1); MEAN CORPUSCULAR HEMOGLOBIN 30.8 pg (28-32); MEAN CORPUSCULAR HGB CONC 32.4 g/dL (31-35); MONOCYTES # (AUTO) 0.7 (0.2-0.8); MONOCYTES % 9.8 % (4.4-11.3); NEUTROPHILS # (AUTO) 4.7 (2.1-6.9); NEUTROPHILS % 64.1 % (38.7-80.0); PLATELET COUNT 461 x10e3/uL (140-360); RED BLOOD COUNT 4.03 x10e6/uL (4.3-5.7); RED CELL DISTRIBUTION WIDTH 13.2 % (11.7-14.4)
[2019-01-30 05:24] LABS: ALANINE AMINOTRANSFERASE 106 IU/L (0-55); ALBUMIN 2.1 g/dL (3.5-5.0); ALBUMIN/GLOBULIN RATIO 0.5 (0.8-2.0); ALKALINE PHOSPHATASE 56 IU/L (40-150); BLOOD UREA NITROGEN 6 mg/dL (7-26); BUN/CREATININE RATIO 8 (6-25); CARBON DIOXIDE 26 mmol/L (22-29); CHLORIDE 104 mmol/L (98-107); CREATININE, SERUM 0.77 mg/dL (0.72-1.25); EST GLOMERULAR FILTRATION RATE > 60 ML/MIN (60-); GLUCOSE 97 mg/dL (74-118); SODIUM 139 mmol/L (136-145)
--- NOTE | 2019-01-30 07:12 | NUR ---
Report given to oncoming nurse,walking round done.
[2019-01-30] MEDS: FAMOTIDINE 20 MG TAB PO SCH ×2 (07:22→15:45)
[2019-01-30] MEDS ORDERED: LIDOCAINE HCL 4% 50 ML BTL ONE (08:24)
[2019-01-30] MEDS ORDERED: ACETYLCYSTEINE 200 MG/ML 4ML VIAL ONE (08:24)
[2019-01-30] MEDS ORDERED: LIDOCAINE HCL 2% 30 ML TUBE ONE (08:24)
[2019-01-30] MEDS: VANCOMYCIN HCL 2 GM in SODIUM CHLORIDE 0.9% 500ML 500 ML IV SCH ×2 (08:25→21:33)
[2019-01-30] MEDS ORDERED: OXYMETAZOLINE HCL 0.05% NAS 1 SPRAY BTL ONE (08:25)
[2019-01-30] MEDS: HEPARIN SOD (PORCINE) 5,000 UNIT/ML VIAL SC SCH ×2 (09:00→21:13)
--- NOTE | 2019-01-30 09:46 | Progress Note ---
DATE: SUBJECTIVE: This is a 43-year-old with immunocompromise comes in with fever of four weeks with pneumonia on the left side. The patient is currently still spiking a fever of 101.4, feeling bad. No chest pains. Positive for some shortness of breath. No nausea, vomiting, or diarrhea. Positive for generalized body aches: The patient currently is having a temperature of 99.0. OBJECTIVE: GENERAL: The patient is alert and oriented x3. VITAL SIGNS: Temperature is 98.9, T-max 101.0 at 11:47 last night. The patient's respirations are 20 and has been varying from 20 to 27, pulse oximetry of 100%. He is on 2 L of oxygen. HEENT: Normocephalic, atraumatic. Pupils are reactive to light and accommodation. CVS: S1, S2 normal. Regular rate and rhythm. LUNGS: Positive for left-sided rhonchi and decreased air entry. ABDOMEN: Nontender and nondistended. EXTREMITIES: No clubbing. No cyanosis. No edema. MEDICATIONS: The patient is on Zosyn, vancomycin and azithromycin. DVT prophylaxis and GI prophylaxis instituted, pain medication on morphine. LABORATORY VALUES: Today's white count was 7.25, hemoglobin of 12.5, hematocrit of 38.1, platelet count is 461. MICROBIOLOGY: Gram stain sputum shows usual respiratory kieran. The patient's blood cultures, no growth. AFB culture is pending. IMAGING STUDIES: Chest x-ray from yesterday shows finding compatible with evolving multifocal pneumonia and no progression. ASSESSMENT: A 43-year-old male with sepsis. 1. Present on arrival. 2. Multifocal pneumonia. 3. Fever. 4. History of immunocompromised status. 5. Pneumonia. PLAN: 1. We will continue to have the patient on antibiotics at this time. 2. A bronchoscopy will be done today secondary to nonresolving of fever and also pneumonia. 3. Continue on supplemental oxygen. 4. GI prophylaxis. 5. DVT prophylaxis. Further recommendation per clinical course. We will continue to monitor the patient. MD PATRICK Ash/BROOKLYNL /[id number]
--- NOTE | 2019-01-30 09:53 | NUR ---
pt off unit for procedure
[2019-01-30 11:47] LABS: BODY FLUID APPEARANCE CLOUDY; BODY FLUID COLOR STRAW; BODY FLUID TYPE SEE COMMENTS
[2019-01-30 11:48] LABS: RBC,BODY FLUID 1565 cells/uL; WBC,BODY FLUID 177 cells/uL
[2019-01-30 11:59] LABS: EOSINOPHILS,BODY FLUID 1 %; LYMPHOCYTES,BODY FLUID 53 %; MONO/MACROPHG,BODY FLUID 7 %; NEUTROPHILS,BODY FLUID 28 %; OTHER CELLS,BODY FLUID 11 %
[2019-01-30] MEDS: GUAIFENESIN/CODEINE 10 ML CUP PO PRN ×2 (13:38→19:53)
[2019-01-30] MEDS: FLUCONAZOLE 400MG/200ML BAG 200 ML IV SCH (13:38)
--- NOTE | 2019-01-30 17:04 | Operative Report ---
DATE OF PROCEDURE: SURGEON: Casimiro Diaz MD PREPROCEDURE DIAGNOSIS: Multifocal pneumonia. POSTPROCEDURE DIAGNOSES: Normal endobronchial airway, mild narrowing of the lingular segment. TAX MAP TECHNICIAN: None. ANESTHESIA: General. PROCEDURE DETAIL: Bronchoscope was advanced through the LMA. Pavithra was identified. Right lung was entered. Right upper lobe, lower lobe and middle lobe were examined. No endobronchial lesion was seen. Thin secretions. Left upper lobe appeared normal. Lingula was slightly narrowed, but no endobronchial lesion was seen. Left lower lobe appeared normal looking thin secretions. No mucopurulence was seen. BAL was sent from left upper lobe and lower lobe. Since there was narrowing of the left lingula, I did a mucosal biopsy of the lingula. COMPLICATIONS: None. The patient tolerated the procedure well. MD DES Maya/BROOKLYNL /[id number]
[2019-01-30] MEDS ORDERED: LIDOCAINE HCL 2% LOCAL INJ 5 ML SDV VIAL INJ ONE (17:41)
[2019-01-30] MEDS ORDERED: ONDANSETRON HCL INJ 2MG/ML 2ML 2 MG/ML VIAL ONE (17:41)
[2019-01-30] MEDS ORDERED: DEXAMETHASONE SOD PHOS INJ 4 MG/ML VIAL ONE (17:41)
[2019-01-30] MEDS ORDERED: PROPOFOL IV EMULSION 10 MG/ML 20 ML VIAL ONE (17:41)
[2019-01-30] MEDS ORDERED: SEVOFLURANE INHAL SOLN 250 ML PEN BTL ONE (17:41)
[2019-01-30] MEDS ORDERED: MIDAZOLAM HCL 2 MG/2 ML VIAL ONE (18:26)
[2019-01-30] MEDS ORDERED: FENTANYL CITRATE/PF 100MCG/2 ML INJ ONE (18:26)
[2019-01-30] MEDS: AZITHROMYCIN 500MG/NS 250 ML 250 ML IV SCH (19:47)
--- NOTE | 2019-01-30 23:49 | NUR ---
Started new IV on right wrist 20G at this time. Will continue to monitor.
[2019-01-31] MEDS: SODIUM CHLORIDE 0.9% 1000ML 1,000 ML IV SCH ×3 (01:24→18:04)
[2019-01-31 04:11] VITALS: BP 106/64
[2019-01-31] MEDS: PIPER-TAZ 3.375 GM 50 ML IV SCH ×4 (04:17→20:43)
[2019-01-31 05:02] LABS: BASOPHILS % 0.4 % (0.0-1.0); EOSINOPHILS % 0.1 % (0.0-6.0); HEMATOCRIT 35.7 % (38.2-49.6); HEMOGLOBIN 11.8 g/dL (14.0-18.0); LYMPHOCYTES % 13.4 % (18.0-39.1); MEAN CORPUSCULAR HEMOGLOBIN 31.1 pg (28-32); MEAN CORPUSCULAR HGB CONC 33.1 g/dL (31-35); MEAN CORPUSCULAR VOLUME 93.9 fL (81-99); MONOCYTES # (AUTO) 0.5 (0.2-0.8); MONOCYTES % 6.7 % (4.4-11.3); NEUTROPHILS # (AUTO) 5.6 (2.1-6.9); PLATELET COUNT 516 x10e3/uL (140-360); RED CELL DISTRIBUTION WIDTH 13.1 % (11.7-14.4)
[2019-01-31 05:34] LABS: ALANINE AMINOTRANSFERASE 114 IU/L (0-55); ALBUMIN 2.2 g/dL (3.5-5.0); ALBUMIN/GLOBULIN RATIO 0.6 (0.8-2.0); ALKALINE PHOSPHATASE 55 IU/L (40-150); ANION GAP 14.2 mmol/L (8-16); BLOOD UREA NITROGEN 9 mg/dL (7-26); BUN/CREATININE RATIO 12 (6-25); CALCIUM 9.1 mg/dL (8.4-10.2); CARBON DIOXIDE 23 mmol/L (22-29); CHLORIDE 104 mmol/L (98-107); CREATININE, SERUM 0.77 mg/dL (0.72-1.25); EST GLOMERULAR FILTRATION RATE > 60 ML/MIN (60-); GLUCOSE 118 mg/dL (74-118); POTASSIUM 4.2 mmol/L (3.5-5.1); SODIUM 137 mmol/L (136-145)
--- NOTE | 2019-01-31 07:00 | NUR ---
Pt received resting in bed. Alert and oriented x4, on room air. Oriented to staff and surroundings. Encouraged to press call portillo if help needed. Pt verbalized understanding of teaching. Call portillo within reach. Will monitor
--- NOTE | 2019-01-31 07:02 | Progress Note ---
DATE: SUBJECTIVE: The patient is a 43-year-old male with immunocompromised status secondary to disease modifying drugs. The patient is currently afebrile, has been feeling better since yesterday. No diarrhea has been noted. No chest pain. No shortness of breath. Fever has dissipated. The patient is feeling better today. Bronchoscopy was done yesterday and findings noted. OBJECTIVE: VITAL SIGNS: Temperature is 97.6, T-max is 99.0 at 2000 on 01/30/2019. The patient's pulse 84, respirations of 18, blood pressure is 106/64, pulse oximetry of 98% on room air. HEENT: Normocephalic, atraumatic. Pupils are reactive to light and accommodation. CVS: S1 and S2 are normal. Regular rate and rhythm. ABDOMEN: Nontender, nondistended. EXTREMITIES: No clubbing, no cyanosis, and/or no edema. LUNGS: Positive for crackles and rhonchi. LABORATORY VALUES: Today's hemoglobin is 11.1, hematocrit 35.7. The patient remains with no leukocytosis. Chemistries, ALT and AST slightly elevated at 77 and 114. Calcium is normal. The patient's eGFR is above 60. Additional medication added yesterday, IV Diflucan. MICROBIOLOGY: Bronchial washings preliminary culture shows rare gram-positive cocci in chain and sputum culture shows usual respiratory kieran and blood cultures, no growth in 5 days. ASSESSMENT: 1. A 43-year-old male, immunocompromised status with sepsis. 2. Multifocal pneumonia. 3. Fever. 4. Immunocompromised status. 5. History of psoriasis. PLAN: We will continue on antibiotics. The patient is on 3 antibiotics and an antifungal, vancomycin, Zosyn and azithromycin. Continue with the supplemental oxygen. GI prophylaxis, DVT prophylaxis, and continue to monitor the patient. A bronchial washing and bronchial biopsy have been taken. We will wait for pathology and microbiology results. Further recommendation per clinical course. We will continue to monitor the patient along with consultants. MD PATRICK Ash/BROOKLYNL /[id number]
--- NOTE | 2019-01-31 07:04 | NUR ---
Report given to oncoming nurse, walking round done.
[2019-01-31] MEDS: LEVALBUTEROL HCL SOLN NEBU 0.63 MG/3 ML NEB INH SCH ×3 (07:15→20:32)
[2019-01-31 08:10] VITALS: BP 118/73
--- NOTE | 2019-01-31 08:10 | NUR ---
Meds given as ordered. Call portillo within reach. Will monitor
[2019-01-31] MEDS: FAMOTIDINE 20 MG TAB PO SCH ×2 (08:12→16:46)
[2019-01-31] MEDS: HEPARIN SOD (PORCINE) 5,000 UNIT/ML VIAL SC SCH ×2 (08:13→20:49)
[2019-01-31] MEDS: VANCOMYCIN HCL 2 GM in SODIUM CHLORIDE 0.9% 500ML 500 ML IV SCH ×2 (09:24→21:22)
[2019-01-31] MEDS: GUAIFENESIN/CODEINE 10 ML CUP PO PRN ×2 (11:00→20:50)
[2019-01-31 12:00] VITALS: BP 136/81
[2019-01-31] MEDS: FLUCONAZOLE 400MG/200ML BAG 200 ML IV SCH (12:46)
[2019-01-31 16:30] VITALS: BP 141/77
[2019-01-31] MEDS: AZITHROMYCIN 500MG/NS 250 ML 250 ML IV SCH (18:41)
--- NOTE | 2019-01-31 19:10 | NUR ---
Handoff given to oncoming shift. Pt resting in bed. Call portillo within reach.
--- NOTE | 2019-01-31 19:47 | NUR ---
dr Travis called back and spoke to him, per MD,to hold Vancomycin if the trough result is more than 20.
[2019-01-31 20:47] VITALS: BP 111/73
[2019-01-31 20:51] VITALS: BP 111/73
[2019-02-01 00:09] VITALS: BP 136/55
[2019-02-01] MEDS: LEVALBUTEROL HCL SOLN NEBU 0.63 MG/3 ML NEB INH SCH ×2 (01:00→07:00)
[2019-02-01] MEDS: SODIUM CHLORIDE 0.9% 1000ML 1,000 ML IV SCH ×2 (02:24→08:54)
[2019-02-01] MEDS: PIPER-TAZ 3.375 GM 50 ML IV SCH ×2 (03:51→08:53)
[2019-02-01 04:20] VITALS: BP 117/65
--- NOTE | 2019-02-01 07:00 | NUR ---
Pt received resting in bed. For discharge home today. Call portillo within reach. Will monitor
[2019-02-01 07:20] VITALS: BP 132/59
[2019-02-01] MEDS: FAMOTIDINE 20 MG TAB PO SCH (08:53)
[2019-02-01] MEDS: HEPARIN SOD (PORCINE) 5,000 UNIT/ML VIAL SC SCH (08:54)
--- NOTE | 2019-02-01 09:19 | Progress Note ---
DATE: Progress Note and Discharge Summary SUBJECTIVE: The patient is a 43-year-old male, who came in with multifocal pneumonia. The patient is status post bronch and after bronch, the patient has been asymptomatic, afebrile. No chest pains. No shortness of breath. The patient has been off oxygen, starting at 96%, lying down, comfortable. No complaints. No chest pains. MEDICATIONS: Acetaminophen, azithromycin, benzonatate, fluconazole, guaifenesin with codeine, levalbuterol, morphine sulfate, Zosyn, and vancomycin. OBJECTIVE: VITAL SIGNS: Temperature is 98.5, T-max of 99, pulse of 64, respirations of 20, blood pressure is 117/65, pulse oximetry of 93% on room air. HEENT: Normocephalic, atraumatic. Pupils are reactive to light and accommodation. CVS: S1, S2 normal. Regular rate and rhythm. LUNGS: Positive for rhonchi bilaterally. ABDOMEN: Nontender, nondistended. EXTREMITIES: No clubbing, no cyanosis, no edema. LABORATORY DATA: None done today. Yesterday's hemoglobin was stable at 11.8 and hematocrit of 35.7 and white count has been stable at 7.15. No imaging studies were done. ASSESSMENT: A 43-year-old gentleman with: 1. Multifocal pneumonia. 2. Sepsis, resolved. 3. Fever. 4. Immunocompromised status. 5. History of psoriatic arthritis. PLAN: Continue on antibiotic. The patient can be discharged home today on p.o. antibiotics. We will let that be decided by ID. The patient does not need supplemental oxygen at home. We will follow up with the patient in about a week's time. Further recommendations per clinical course. The patient also needs to be follow up with ID and also with Dr. Diaz for CT scan until resolution. Further recommendations per clinical course. We will see the patient as an outpatient. MD RONDA AshJ/MODL /[id number]
[2019-02-01] MEDS: VANCOMYCIN HCL 2 GM in SODIUM CHLORIDE 0.9% 500ML 500 ML IV SCH (09:40)
[2019-02-01 12:00] VITALS: BP 143/80
[2019-02-01] MEDS ORDERED: DIFLUCAN200 MG PO (12:28)
[2019-02-01] MEDS ORDERED: LEVAQUIN500 MG PO (12:28)
[2019-02-01] MEDS ORDERED: PROMETHAZINE HC25 M1 PO (12:30)
--- NOTE | 2019-02-01 13:08 | NUR ---
Vancomycin 2gm ongoing. Will discharge pt after infusion completes. Will monitor
--- NOTE | 2019-02-01 13:28 | NUR ---
Pt given discharge instructions regarding diet, meds, s/s to report, and follow up appointment. Pt verbalized understanding of teaching. Refused wheelchair. Escorted off unit by nurse with all belongings
== END 2019-02-01 13:30 | disposition home or self-care (01) | DRG 871 ==
LOC: IMCU 18:31 → OBSVTOIN 01-26 12:38 → MED/SURG 01-30 18:04 → IMCU 01-30 18:05
PROVIDERS: ADMIT Family Medicine; ATTEND Family Medicine
PROC: 0BD98ZX Extraction of Lingula Bronchus, Via Natural or Artificial Opening Endoscopic, Diagnostic (ICD-10-PCS; 2019-01-30)
PROC: 0B9J8ZX Drainage of Left Lower Lung Lobe, Via Natural or Artificial Opening Endoscopic, Diagnostic (ICD-10-PCS; principal; 2019-01-30 08:30)
PROC: 0B9G8ZX Drainage of Left Upper Lung Lobe, Via Natural or Artificial Opening Endoscopic, Diagnostic (ICD-10-PCS; 2019-01-30 08:30)
DX: A41.9 Sepsis, unspecified organism (principal); J18.1 Lobar pneumonia, unspecified organism; J96.01 Acute respiratory failure with hypoxia; D84.9 Immunodeficiency, unspecified; R59.1 Generalized enlarged lymph nodes; L40.50 Arthropathic psoriasis, unspecified; J30.9 Allergic rhinitis, unspecified; J40 Bronchitis, not specified as acute or chronic; E78.5 Hyperlipidemia, unspecified; D64.9 Anemia, unspecified; K21.9 Gastro-esophageal reflux disease without esophagitis
CPT/HCPCS: 31622; 31625; 36415; 36600; 71045; 71046; 71260; 80048; 80053; 80202; 81001; 82805; 82948; 83605; 85025; 86039; 86332; 86611; 86631; 86638; 86644; 86645; 86738; 86777; 86778; 87040; 87070; 87102; 87109; 87110; 87116; 87205; 87206; 87278; 87299; 87335; 87385; 87390; 87449; 88112; 88305; 88342; 89051; 93005; 94640; 96361; G0378; G0433; G0435; J0456; J0696; J1100; J1450; J1644; J1885; J2001; J2250; J2270; J2405; J2543; J3010; J3370; J7030; J7040; Q9967

== ENCOUNTER → 2019-05-11 | Outpatient (CLI) | payer BC ==
[~2019-05-11] MED LIST: DIFLUCAN200 MG PO; LEVAQUIN500 MG PO; PROMETHAZINE HC25 M1 PO
--- NOTE | 2019-05-11 17:13 | Diagnostic Imaging Report ---
EXAM: CT Chest WITHOUT intravenous contrast 05/11/2019 INDICATION: Pneumonia COMPARISON: Chest CT dated 03/16/2019 and 01/25/2019 TECHNIQUE: Chest was scanned utilizing a multidetector helical scanner from the lung apex through the level of the adrenal glands without administration of IV contrast. Coronal and sagittal reformations were obtained. Routine protocol was performed. IV CONTRAST: None Dose modulation, iterative reconstruction, and/or weight based adjustment of the mA/kV was utilized to reduce the radiation dose to as low as reasonably achievable. COMPLICATIONS: None FINDINGS: There is no axillary, mediastinal, or hilar lymphadenopathy. The visualized portions of the thyroid gland are within normal limits. The heart is within normal limits of size. There is no pericardial effusion. The thoracic aorta is of normal course and caliber. The trachea and central airways are clear. Since prior examination there is been continued interval decrease in parenchymal consolidation. The residual left lower lobe consolidation measures approximately 3.5 cm compared to 6 cm previously. There is no significant residual left upper lobe consolidation. Scarring is present at the left upper lobe. No new pulmonary consolidation is identified. The pleural spaces are clear. There is no pleural effusion or pneumothorax. Evaluation of the upper abdomen demonstrates no focal hepatic lesions are visualized portions of the liver. The spleen is normal. The bilateral adrenal glands are unremarkable. No acute osseous abnormalities are identified. IMPRESSION: Improving consolidation in the left upper and lower lobe. No new consolidation. Recommend follow-up chest radiograph in 6-8 weeks to document continued resolution. Signed by: Jones Blake MD on 05/11/2019 5:09 PM
== END ==
LOC: CT 16:00
PROVIDERS: ATTEND Internal Medicine
DX: Z87.01 Personal history of pneumonia (recurrent) (principal)
CPT/HCPCS: 71250

== ENCOUNTER → 2019-09-07 | Outpatient (CLI) | payer BC ==
--- NOTE | 2019-09-07 09:10 | Diagnostic Imaging Report ---
CT of the chest, without contrast. History: Pneumonia follow-up. Comparison: CT chest without contrast from 05/11/2019, 03/16/2019. Technique: Multidetector CT scanning of the chest was performed from the level of the apices to the upper abdomen without contrast. Coronal and sagittal multiplanar reformations were obtained. RADIATION DOSE: Total DLP: 481.58 mGy*cm Dose modulation, iterative reconstruction, and/or weight based adjustment of the mA/kV was utilized to reduce the radiation dose to as low as reasonably achievable. FINDINGS: The thyroid and remaining visualized structures within the base of the neck demonstrate no significant abnormalities. The thoracic aorta is normal course and caliber. The heart is not enlarged. There is no abnormal pericardial fluid present. There is no abnormal axillary, mediastinal, or hilar lymph node enlargement. The trachea and proximal airways are patent. There is continued improvement in previously visualized consolidative opacities within the left upper and lower lobes. Predominantly bandlike residual opacities are now present suggestive of atelectasis/scarring. Examination of the lungs otherwise no entry is no evidence for new consolidation, pneumothorax, or new mass/nodule, or pleural effusion. The visualized upper abdominal contents demonstrate no significant abnormalities. The osseous structures demonstrate no evidence for acute fracture or destructive process. IMPRESSION: Continued improvement in consolidative opacities within the left lung compatible with resolving infectious/inflammatory process. Predominantly bandlike opacities remain suggestive of atelectasis/scarring. No evidence for new consolidation or mass. Signed by: Dr. Gerber Pino MD on 09/07/2019 9:07 AM
== END ==
LOC: CT 08:02
PROVIDERS: ATTEND Internal Medicine
DX: Z09 Encounter for follow-up examination after completed treatment for conditions other than malignant neoplasm (principal); J18.9 Pneumonia, unspecified organism
CPT/HCPCS: 71250

== ENCOUNTER 2020-05-12 13:48 | Emergency (ER) | payer BC ==
[~2020-05-12] VITALS: Ht 167.6 cm; Wt 74.4 kg
[2020-05-12 14:13] LABS: BASOPHILS # (AUTO) 0.1 (0.0-0.1); BASOPHILS % 1.1 % (0.0-1.0); EOSINOPHILS # (AUTO) 0.1 (0.0-0.4); EOSINOPHILS % 1.9 % (0.0-6.0); HEMATOCRIT 46.1 % (38.2-49.6); HEMOGLOBIN 15.5 g/dL (14.0-18.0); LYMPHOCYTES % 42.2 % (18.0-39.1); MEAN CORPUSCULAR HEMOGLOBIN 31.2 pg (28-32); MEAN CORPUSCULAR HGB CONC 33.6 g/dL (31-35); MEAN CORPUSCULAR VOLUME 92.8 fL (81-99); MONOCYTES # (AUTO) 0.4 (0.2-0.8); NEUTROPHILS # (AUTO) 2.1 (2.1-6.9); NEUTROPHILS % 45.4 % (38.7-80.0); PLATELET COUNT 305 x10e3/uL (140-360); RED BLOOD COUNT 4.97 x10e6/uL (4.3-5.7)
[2020-05-12 14:21] LABS: INR 0.93; PROTHROMBIN TIME 12.9 seconds (11.9-14.5)
[2020-05-12 14:22] LABS: PARTIAL THROMBOPLASTIN TIME 29.5 seconds (23.8-35.5)
[2020-05-12 15:41] LABS: ALANINE AMINOTRANSFERASE 28 IU/L (0-55); ALBUMIN 4.3 g/dL (3.5-5.0); ALBUMIN/GLOBULIN RATIO 1.1 (0.8-2.0); ALKALINE PHOSPHATASE 60 IU/L (40-150); ANION GAP 13.5 mmol/L (8-16); BLOOD UREA NITROGEN 14 mg/dL (7-26); BUN/CREATININE RATIO 14 (6-25); CALCIUM 9.1 mg/dL (8.4-10.2); CARBON DIOXIDE 27 mmol/L (22-29); CHLORIDE 104 mmol/L (98-107); CREATINE KINASE 96 IU/L (30-200); CREATININE, SERUM 1.02 mg/dL (0.72-1.25); EST GLOMERULAR FILTRATION RATE > 60 ML/MIN (60-); GLUCOSE 84 mg/dL (74-118); POTASSIUM 3.5 mmol/L (3.5-5.1); SODIUM 141 mmol/L (136-145)
== END 2020-05-12 16:21 | disposition home or self-care (01) ==
LOC: ER 14:37
DX: R07.89 Other chest pain (principal); E78.5 Hyperlipidemia, unspecified; L40.50 Arthropathic psoriasis, unspecified; Z20.828 Contact with and (suspected) exposure to other viral communicable diseases
CPT/HCPCS: 36415; 71045; 80053; 82550; 82553; 83880; 84484; 85025; 85610; 85730; 93005; 99284; U0002